=== PATIENT | male | born 1985 | race Two or more races ===

== ENCOUNTER 2019-04-30 21:25 | Emergency (ER) | payer OTHER ==
[~2019-04-30] VITALS: Ht 165.1 cm; Wt 79.4 kg
== END 2019-05-01 02:42 | disposition home or self-care (01) ==
LOC: ER 21:25
DX: R10.32 Left lower quadrant pain (principal)

== ENCOUNTER 2019-07-15 16:36 | Emergency (ER) | payer OTHER ==
[~2019-07-15] VITALS: Ht 165.1 cm; Wt 88.5 kg
== END 2019-07-15 18:56 | disposition home or self-care (01) ==
LOC: ER 16:36
DX: B34.9 Viral infection, unspecified (principal)

== ENCOUNTER 2019-09-20 19:04 | Emergency (ER) | payer OTHER ==
[~2019-09-20] VITALS: Ht 165.1 cm; Wt 86.2 kg
[2019-09-20] MEDS ORDERED: DICLOFENAC SODI75 MG PO (20:25)
[2019-09-20] MEDS ORDERED: BACTRIM DS TAB1 EACH PO (20:25)
== END 2019-09-20 21:29 | disposition home or self-care (01) ==
LOC: ER 19:04
DX: J03.90 Acute tonsillitis, unspecified (principal)

== ENCOUNTER → 2020-03-01 | Emergency (ER) | payer OTHER ==
[~2020-03-01] VITALS: Ht 165.1 cm; Wt 86.2 kg
[~2020-03-01] MED LIST: BACTRIM DS TAB1 EACH PO; DICLOFENAC SODI75 MG PO
== END | disposition home or self-care (01) ==
LOC: ER 18:59
DX: B34.9 Viral infection, unspecified (principal); M62.830 Muscle spasm of back; Z20.828 Contact with and (suspected) exposure to other viral communicable diseases

== ENCOUNTER 2021-12-02 09:46 | Emergency (ER) | payer OTHER ==
[~2021-12-02] VITALS: Ht 165.1 cm; Wt 90.7 kg
== END 2021-12-02 12:33 | disposition home or self-care (01) ==
LOC: ER 09:46
DX: B34.9 Viral infection, unspecified (principal); Z20.822 Contact with and (suspected) exposure to COVID-19